=== PATIENT | female | born 1965 | race Caucasian/White ===

== ENCOUNTER 2020-06-17 08:21 | Inpatient (IN) | payer BC, SELFPAY ==
[2020-06-17] VITALS (11 sets, daily range): BP systolic 98–159; BP diastolic 60–111; PULSE 53–86; RESP 14–22; TEMP 36.5–36.8; O2SAT 94–98; BMI 29.2
--- NOTE | 2020-06-17 08:22 | XRR_ITS ---
PROCEDURE INFORMATION: Exam: XR Chest, 1 View Exam date and time: 06/17/2020 8:37 AM Age: 55 years old Clinical indication: Chest pain; Prior surgery; Surgery date: 6+ months; Surgery type: Stent; Patient HX: C/O pain radiating from chest to jaw and upper extremities TECHNIQUE: Imaging protocol: XR of the chest Views: 1 view. COMPARISON: CR Chest 1 [place] [id number] 10/28/2014 7:20 AM FINDINGS: Lungs: Unremarkable. No consolidation. Pleural space: Unremarkable. No pleural effusion. No pneumothorax. Heart/Mediastinum: Unremarkable. No cardiomegaly. Bones/joints: Unremarkable. XR/XR chest 1V portable [id number] IMPRESSION: No acute findings.
--- NOTE | 2020-06-17 08:23 | ECG_ITS ---
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 Measurements Intervals [place] Rate: 61 P: 64 MT: 144 QRS: 41 QRSD: 113 T: 93 QT: 400 QTc: 406 Interpretive Statements SINUS RHYTHM POSSIBLE LEFT ATRIAL ENLARGEMENT [-0.1mV P WAVE IN V1/V2] MODERATE INTRAVENTRICULAR CONDUCTION DELAY [110+ ms QRS DURATION] MODERATE ST DEPRESSION [0.05+ mV ST DEPRESSION] Compared to ECG 10/29/2014 04:25:36 Intraventricular conduction delay now present ST (T wave) deviation now present T-wave abnormality no longer present Electronically Signed On 06-17-2020 19:41:42 CDT by Emma Wright M.D. [email or web address].[employer]/store/NU/[id number] f
--- NOTE | 2020-06-17 08:38 | W.ED.CHESTPA ---
Documented by User: CAROLANN Banks 06/17/20 11:27 HPI - Chest Pain General: Chief Complaint: Chest Pain Stated Complaint: cp Time Seen by Provider: 06/17/20 08:26 Source: patient Mode of arrival: ambulatory Limitations: no limitations History of Present Illness: HPI narrative: Patient is a 55-year-old female who presents to ED today with a complaint of intermittent substernal chest pain over the past 3 weeks. Patient tells me she has not found any exacerbating or relieving factors to her discomfort. She has been treating with Aspirin, Tylenol, Pepcid without much relief. Patient states pain normally would subside on its own however this morning did not seem to do this which made her concerned enough to come to the emergency department. She has a history of a previous IN and cardiac stent performed approximately 5 years ago. Patient tells me she is not having any shortness of breath or difficulty breathing. She does complain of pain in her jaw and down both arms. 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 Grey but has not seen him in many many years. She has PMH significant for hyperlipidemia. She is an everyday smoker. MD complaint: chest pain Pertinent past history: coronary artery disease and prior IN Onset (ago): week(s) Timing of current episode: episodic Pain location: substernal Associated symptoms: Deny abdominal pain, dyspnea, fever(s), nausea, palpitations, syncope or vomiting Review of Systems Const: Denies: fever(s), chills, body aches, fatigue or malaise Eyes: Denies: change in vision or blurry vision Card: Reports: chest pain; Denies: palpitations, irregular heart rhythm, edema, swelling of feet/ankles, lightheadedness, syncope, pre-syncope, dyspnea on exertion, orthopnea or leg pain with exertion Resp: Denies: dyspnea, productive cough, non-productive cough, pain on inspiration, hemoptysis or chest congestion GI: Denies: abdominal pain, nausea, vomiting, heartburn or diarrhea : Denies: flank pain, difficulty voiding, dysuria or urinary urgency Musc: Denies: neck pain, back pain or joint pain Skin/Breast: Denies: rash Neuro: Denies: headache(s), numbness in extremities, weakness in extremities or sensory changes Physical Exam Const: COMMON NORMALS: no acute distress, patient oriented x3, no limitations and alert HENMT: COMMON NORMALS: normocephalic and atraumatic HEAD & SCALP: normocephalic and atraumatic Chest: COMMONS NORMALS: normal inspection of the chest and normal palpation of entire chest wall Resp: COMMON NORMALS: normal respiratory effort and clear to auscultation bilaterally AUSCULTATION: clear to auscultation bilaterally Cardio: COMMON NORMALS: regular rate and regular rhythm RATE: regular rate RHYTHM: regular rhythm GI: COMMON NORMALS: Normal to inspection, nondistended, normoactive bowel sounds present, Soft to palpation, non-tender, No hepatosplenomegaly present and no masses PALPATION: Yes Soft to palpation and Yes No hepatosplenomegaly present Extremity: GENERAL: Yes normal exam except as noted Neuro: COMMON NORMALS: patient oriented x3 SENSORIUM/ORIENTATION: Yes alert Skin: COMMON NORMALS: no rashes or lesions noted GENERAL SKIN EXAM: no rashes or lesions noted Course Vital Signs: Vital signs: Vital Signs Pulse Rate 55 L 06/17/20 11:32 Respiratory Rate 16 06/17/20 11:32 Blood Pressure 118/66 06/17/20 11:32 Pulse Oximetry 97 06/17/20 11:32 MDM - Chest Pain MDM Narrative: Medical decision making narrative: Patient here for worsening chest pains over the past few weeks. She has a HEART score of at least 6. Pending second troponin currently. Will speak to Dr. Walton for hospital admission. Lab Data: Labs: Lab Results 06/17/20 06/17/20 06/17/20 Range/Units 08:45 08:45 08:45 WBC 7.5 (4.0-10.0) 10^3/ uL RBC 4.76 (4.1-5.3) 10^6/u L Hgb 14.3 (11.5-15.3) g/dL Hct 44.2 (37.0-47.0) % MCV 92.9 (81-99) fL MCH 30.0 (28.0-34.0) pg MCHC 32.4 (30.0-36.0) g/dL RDW 13.0 (12.1-15.1) % Plt Count 194 (130-400) 10^3/c mm MPV 11.5 H (7.4-10.4) fL Neut % (Auto) 64.2 % Lymph % (Auto) 25.7 % [place] % (Auto) 7.4 % Eos % (Auto) 2.0 % Baso % (Auto) 0.4 % Neut # (Auto) 4.80 (1.8-7.7) 10^3/u L Lymph # (Auto) 1.9 (0.8-4.8) 10^3/u L [place] # (Auto) 0.6 (0.2-0.9) 10^3/u L Eos # (Auto) 0.2 (0.0-0.8) 10^3/u L Baso # (Auto) 0.0 (0.0-0.1) 10^3/u L Nucleated RBC % (a uto) 0 % Nucleated RBCs # 0.0 /100WBC Sodium 138 (136-145) mmol/L Potassium 4.3 (3.5-5.1) mmol/L Chloride 107 (98-107) mmol/L Carbon Dioxide 20 L (22-29) mmol/L Anion Gap 15.3 (5-19) BUN 10 (6-20) mg/dL Creatinine 0.8 (0.5-0.9) mg/dL GFR Calculation 74.5 L (90-130) mL/min Glucose 163 H (65-115) mg/dL Calculated Osmolal ity 286 (285-295) mOsm/k g Calcium 9.0 (8.5-10.5) mg/dL Total Bilirubin 0.2 (0.15-1.2) mg/dL AST 22 (0-32) U/L ALT 18 (0-33) U/L Alkaline Phosphata se 65 (35-105) IU/L Troponin T Baselin e 37 H (0-10) ng/L Troponin T 120 Min [place] (0-10) ng/L Delta Troponin T (0-10) ABS# Total Protein 6.6 (6.6-8.7) g/dL Albumin 3.5 (3.5-5.2) g/dL Globulin 3.1 (1.3-4.6) g/dL /06/28 Range/Units 10:50 WBC (4.0-10.0) 10^3/ uL RBC (4.1-5.3) 10^6/u L Hgb (11.5-15.3) g/dL Hct (37.0-47.0) % MCV (81-99) fL MCH (28.0-34.0) pg MCHC (30.0-36.0) g/dL RDW (12.1-15.1) % Plt Count (130-400) 10^3/c mm MPV (7.4-10.4) fL Neut % (Auto) % Lymph % (Auto) % [place] % (Auto) % Eos % (Auto) % Baso % (Auto) % Neut # (Auto) (1.8-7.7) 10^3/u L Lymph # (Auto) (0.8-4.8) 10^3/u L [place] # (Auto) (0.2-0.9) 10^3/u L Eos # (Auto) (0.0-0.8) 10^3/u L Baso # (Auto) (0.0-0.1) 10^3/u L Nucleated RBC % (a uto) % Nucleated RBCs # /100WBC Sodium (136-145) mmol/L Potassium (3.5-5.1) mmol/L Chloride (98-107) mmol/L Carbon Dioxide (22-29) mmol/L Anion Gap (5-19) BUN (6-20) mg/dL Creatinine (0.5-0.9) mg/dL GFR Calculation (90-130) mL/min Glucose (65-115) mg/dL Calculated Osmolal ity (285-295) mOsm/k g Calcium (8.5-10.5) mg/dL Total Bilirubin (0.15-1.2) mg/dL AST (0-32) U/L ALT (0-33) U/L Alkaline Phosphata se (35-105) IU/L Troponin T Baselin e (0-10) ng/L Troponin T 120 Min [place] 72.11 H (0-10) ng/L Delta Troponin T 35.11 H* (0-10) ABS# Total Protein (6.6-8.7) g/dL Albumin (3.5-5.2) g/dL Globulin (1.3-4.6) g/dL Imaging Data^: CXR: Radiologist's impression: [facility] [address] [place] [address] XRay Report Signed Patient: Elsy Benton Unit #: [id number] : 1965 Age/Sex: 55 / F ADM Date: 06/17/20 Loc: ER Room/Bed: Attending Dr: Ordering Provider/Ordering MD: Nicole Bowden Date of Service: 06/17/20 Procedure(s): XR chest 1V portable [id number] Accession Number(s): [id number] Report Number: [id number] PROCEDURE INFORMATION: Exam: XR Chest, 1 View Exam date and time: 06/17/2020 8:37 AM Age: 55 years old Clinical indication: Chest pain; Prior surgery; Surgery date: 6+ months; Surgery type: Stent; Patient HX: C/O pain radiating from chest to jaw and upper extremities TECHNIQUE: Imaging protocol: XR of the chest Views: 1 view. COMPARISON: CR Chest 1 [place] [id number] 10/28/2014 7:20 AM FINDINGS: Lungs: Unremarkable. No consolidation. Pleural space: Unremarkable. No pleural effusion. No pneumothorax. Heart/Mediastinum: Unremarkable. No cardiomegaly. Bones/joints: Unremarkable. XR/XR chest 1V portable [id number] IMPRESSION: No acute findings. Dictated By: Adam Flores MD Signed By: Adam Flores MD Signed Date/Time: 06/17/20922 DD/ 0 Discharge Plan Discharge Patient Disposition: Placed in Observation Admit Provider: Dulce Stanley Clinical Impression: Unstable angina pectoris Chest pain Qualifiers: Chest pain type: unspecified Qualified Code(s): R07.9 - Chest pain, unspecified Condition: Stable Referrals: Carley Serrano FNP [Primary Care Provider] - Sign Out Sign Out Data: Patient Sign Out occurred on 06/17/20 at 11:04. Patient's care was discussed, and care was transferred from to [facility]. Coding Level of Care Code ED Patient Care Provider for Chg Fwd Exam Comprehensive Documented by User: Hailey Walton 06/17/20 11:35 HPI - Chest Pain General: Chief Complaint: Chest Pain Stated Complaint: cp Time Seen by Provider: 06/17/20 08:26 Course Vital Signs: Vital signs: Vital Signs Pulse Rate 55 L 06/17/20 11:32 Respiratory Rate 16 06/17/20 11:32 Blood Pressure 118/66 06/17/20 11:32 Pulse Oximetry 97 06/17/20 11:32 MDM - Chest Pain MDM Narrative: Medical decision making narrative: 1100 -patient care inherited by me from CAROLANN Banks. Please see her note for history, physical exam and medical decision-making notes. Patient's heart score is high and she has new inverted T waves with downsloping in 1 and aVL on her second EKG. Upon my history and exam the patient is chest pain-free and is gotten so with just rest here. I endorsed the case to Dr. Stanley is agreeable to admission and agrees with a one-time dose of Lovenox. Further care will be performed by her on the floor. 1134 -the case was reviewed again with Dr. Stanley and Dr. Cuenca, they will admit and consult respectively. The patient is still chest pain-free but I went ahead and place an inch of Nitropaste, her third EKG is unchanged actually improved slightly from previous. We will add 300 mg of Plavix as well as the Lovenox and the patient has previously been given aspirin. Lab Data: Attestation: I reviewed the patient's lab results. Labs: Lab Results 06/17/20 06/17/20 06/17/20 Range/Units 08:45 08:45 08:45 WBC 7.5 (4.0-10.0) 10^3/ uL RBC 4.76 (4.1-5.3) 10^6/u L Hgb 14.3 (11.5-15.3) g/dL Hct 44.2 (37.0-47.0) % MCV 92.9 (81-99) fL MCH 30.0 (28.0-34.0) pg MCHC 32.4 (30.0-36.0) g/dL RDW 13.0 (12.1-15.1) % Plt Count 194 (130-400) 10^3/c mm MPV 11.5 H (7.4-10.4) fL Neut % (Auto) 64.2 % Lymph % (Auto) 25.7 % [place] % (Auto) 7.4 % Eos % (Auto) 2.0 % Baso % (Auto) 0.4 % Neut # (Auto) 4.80 (1.8-7.7) 10^3/u L Lymph # (Auto) 1.9 (0.8-4.8) 10^3/u L [place] # (Auto) 0.6 (0.2-0.9) 10^3/u L Eos # (Auto) 0.2 (0.0-0.8) 10^3/u L Baso # (Auto) 0.0 (0.0-0.1) 10^3/u L Nucleated RBC % (a uto) 0 % Nucleated RBCs # 0.0 /100WBC Sodium 138 (136-145) mmol/L Potassium 4.3 (3.5-5.1) mmol/L Chloride 107 (98-107) mmol/L Carbon Dioxide 20 L (22-29) mmol/L Anion Gap 15.3 (5-19) BUN 10 (6-20) mg/dL Creatinine 0.8 (0.5-0.9) mg/dL GFR Calculation 74.5 L (90-130) mL/min Glucose 163 H (65-115) mg/dL Calculated Osmolal ity 286 (285-295) mOsm/k g Calcium 9.0 (8.5-10.5) mg/dL Total Bilirubin 0.2 (0.15-1.2) mg/dL AST 22 (0-32) U/L ALT 18 (0-33) U/L Alkaline Phosphata se 65 (35-105) IU/L Troponin T Baselin e 37 H (0-10) ng/L Troponin T 120 Min [place] (0-10) ng/L Delta Troponin T (0-10) ABS# Total Protein 6.6 (6.6-8.7) g/dL Albumin 3.5 (3.5-5.2) g/dL Globulin 3.1 (1.3-4.6) g/dL 06/17/20 Range/Units 10:50 WBC (4.0-10.0) 10^3/ uL RBC (4.1-5.3) 10^6/u L Hgb (11.5-15.3) g/dL Hct (37.0-47.0) % MCV (81-99) fL MCH (28.0-34.0) pg MCHC (30.0-36.0) g/dL RDW (12.1-15.1) % Plt Count (130-400) 10^3/c mm MPV (7.4-10.4) fL Neut % (Auto) % Lymph % (Auto) % [place] % (Auto) % Eos % (Auto) % Baso % (Auto) % Neut # (Auto) (1.8-7.7) 10^3/u L Lymph # (Auto) (0.8-4.8) 10^3/u L [place] # (Auto) (0.2-0.9) 10^3/u L Eos # (Auto) (0.0-0.8) 10^3/u L Baso # (Auto) (0.0-0.1) 10^3/u L Nucleated RBC % (a uto) % Nucleated RBCs # /100WBC Sodium (136-145) mmol/L Potassium (3.5-5.1) mmol/L Chloride (98-107) mmol/L Carbon Dioxide (22-29) mmol/L Anion Gap (5-19) BUN (6-20) mg/dL Creatinine (0.5-0.9) mg/dL GFR Calculation (90-130) mL/min Glucose (65-115) mg/dL Calculated Osmolal ity (285-295) mOsm/k g Calcium (8.5-10.5) mg/dL Total Bilirubin (0.15-1.2) mg/dL AST (0-32) U/L ALT (0-33) U/L Alkaline Phosphata se (35-105) IU/L Troponin T Baselin e (0-10) ng/L Troponin T 120 Min [place] 72.11 H (0-10) ng/L Delta Troponin T 35.11 H* (0-10) ABS# Total Protein (6.6-8.7) g/dL Albumin (3.5-5.2) g/dL Globulin (1.3-4.6) g/dL Imaging Data^: CXR: Attestation: I personally reviewed and interpreted this imaging study as follows: My impression: No acute cardiopulmonary findings. EKG Data^: EKG 1: Attestation: I personally reviewed and interpreted this EKG as follows: EKG interpretation date: 06/17/20 EKG interpretation time: 08:40 Interpretation: Normal sinus rhythm at 61 beats a minute, normal axis, nonspecific ST and T wave changes, new from previous. EKG 2: Attestation: I personally reviewed and interpreted this EKG as follows: EKG interpretation date: 06/17/20 EKG interpretation time: 10:14 Interpretation: Normal sinus rhythm at 54 beats a minute, T wave inversions and downsloping ST segments in 1 and aVL, otherwise no acute findings. EKG 3: Attestation: I personally reviewed and interpreted this EKG as follows: EKG interpretation date: 06/17/20 EKG interpretation time: 11:29 Interpretation: Normal sinus rhythm at 54 beats a minute, T waves inverted in aVL, otherwise nonspecific ST-T wave changes. Discharge Plan Discharge Patient Disposition: Placed in Observation Admit Provider: Dulce Stanley Clinical Impression: Unstable angina pectoris Chest pain Qualifiers: Chest pain type: unspecified Qualified Code(s): R07.9 - Chest pain, unspecified Condition: Stable Referrals: Carley Serrano FNP [Primary Care Provider] - Sign Out Sign Out Data: Patient Sign Out occurred on 06/17/20 at 11:04. Patient's care was discussed, and care was transferred from to [facility]. Coding Level of Care Code ED Patient Care Provider for Chg Fwd Exam Comprehensive
[2020-06-17 08:56] LABS: Basophils % 0.4 %; Eosinophils # 0.2 10^3/uL (0.0-0.8); Hematocrit 44.2 % (37.0-47.0); Hemoglobin 14.3 g/dL (11.5-15.3); Lymphocytes # 1.9 10^3/uL (0.8-4.8); Lymphocytes % 25.7 %; Mean Corpuscular HGB Conc 32.4 g/dL (30.0-36.0); Mean Corpuscular Volume 92.9 fL (81-99); Mean Platelet Volume 11.5 fL (7.4-10.4); Monocytes # 0.6 10^3/uL (0.2-0.9); Monocytes % 7.4 %; Neutrophils % 64.2 %; Nucleated Red Blood Cells % 0 %; Platelet Count 194 10^3/cmm (130-400); Red Blood Count 4.76 10^6/uL (4.1-5.3); White Blood Count 7.5 10^3/uL (4.0-10.0)
[2020-06-17 09:43] LABS: Alanine Aminotransferase 18 U/L (0-33); Albumin Level 3.5 g/dL (3.5-5.2); Alkaline Phosphatase 65 IU/L (35-105); Anion Gap 15.3 (5-19); Aspartate Amino Transferase 22 U/L (0-32); Blood Urea Nitrogen 10 mg/dL (6-20); Carbon Dioxide 20 mmol/L (22-29); Chloride 107 mmol/L (98-107); Globulin 3.1 g/dL (1.3-4.6); Glomerular Filtration Rate 74.5 mL/min (90-130); Glucose 163 mg/dL (65-115); Osmolality Calculated 286 mOsm/kg (285-295); Potassium 4.3 mmol/L (3.5-5.1); Sodium 138 mmol/L (136-145); Total Bilirubin 0.2 mg/dL (0.15-1.2); Total Protein 6.6 g/dL (6.6-8.7)
[2020-06-17 09:45] LABS: Troponin(5th) Baseline 37 ng/L (0-10)
--- NOTE | 2020-06-17 10:23 | ECG_ITS ---
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 Measurements Intervals [place] Rate: 54 P: 43 [place]: 150 QRS: 46 QRSD: 96 T: 147 QT: 455 QTc: 434 Interpretive Statements SINUS BRADYCARDIA WITH OCCASIONAL SUPRAVENTRICULAR PREMATURE COMPLEXES NONSPECIFIC ST & T-WAVE ABNORMALITY Compared to ECG 06/17/2020 08:40:49 T-wave abnormality now present Sinus rhythm no longer present Intraventricular conduction delay no longer present ST (T wave) deviation no longer present Electronically Signed On 06-17-2020 20:05:01 CDT by Emma Wright M.D. [email or web address] LtdWeditregency [facility].[employer]/store/NU/[id number] f
[2020-06-17] MEDS: enoxaparin 80 mg/0.8 mL Syringe 77 MG SUBCUT (11:14)
[2020-06-17 11:16] LABS: Troponin 5 2HR 72.11 ng/L (0-10)
[2020-06-17 11:19] LABS: Troponin 5 2HR Delta 35.11 ABS# (0-10)
--- NOTE | 2020-06-17 11:22 | ECG_ITS ---
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 Measurements Intervals [place] Rate: 54 P: 60 [place]: 152 QRS: 37 QRSD: 93 T: 112 QT: 453 QTc: 430 Interpretive Statements SINUS BRADYCARDIA MODERATE ST DEPRESSION [0.05+ mV ST DEPRESSION] ABNORMAL QRS-T ANGLE [QRS-T AXIS DIFFERENCE > 60] Compared to ECG 06/17/2020 10:14:53 ST (T wave) deviation now present T-wave abnormality no longer present Electronically Signed On 06-17-2020 19:42:13 CDT by Emma Wright M.D. [email or web address] [email or web address].[employer]/store/[id number]
[2020-06-17] MEDS: nitroglycerin 1 gm/inch oint Pkt 1 INCH TOPICAL (11:43)
[2020-06-17] MEDS: clopidogrel 300 mg Tablet PO (11:43)
--- NOTE | 2020-06-17 11:46 | PC.NURSE ---
Nitro-bid 1inch applied to left chest at this time.
[2020-06-17 13:15] LABS: Thyroid Stimulating Hormone 2.14 uIU/mL (0.27-4.20)
--- NOTE | 2020-06-17 13:41 | USCV_ITS ---
Benton Elsy Age: 55 Gender: F : 1965 Exam Date: 06/17/2020 14:59 Ordering Phys: Dulce Stanley DO Technologist: Wade Summers Exam Location: [facility] Indication: CHEST PAIN BP: 125 / 75 HR: 58 Rhythm: Sinus Technical Quality: Fair MEASUREMENTS (Male / Female) Normal Values 2D ECHO LV Diastolic Diameter PLAX 4.8 cm 4.2 - 5.9 / 3.9 - 5.3 cm LV Systolic Diameter PLAX 2.8 cm IVS Diastolic Thickness 1.1 cm 0.6 - 1.0 / 0.6 - 0.9 cm IVS Systolic Thickness 1.2 cm LVPW Diastolic Thickness 1.1 cm 0.6 - 1.0 / 0.6 - 0.9 cm LVPW Systolic Thickness 1.2 cm LVOT Diameter 2.0 cm LV Ejection Fraction 2D Teich 72.4 % LV Ejection Fraction MOD 2C 82.1 % LV Ejection Fraction 2C AL 81.1 % LA Diameter 3.5 cm LA Width 3.1 cm LA Height 4.2 cm RA Width 2.9 cm RA Height 3.3 cm Aorta at Sinotubular Diameter 0.9 cm M-MODE LV Diastolic Diameter MM 5.5 cm 4.2 - 5.9 / 3.9 - 5.3 cm LV Systolic Diameter MM 3.6 cm LV Ejection Fraction MM Teich 63.5 % IVS Diastolic Thickness MM 0.8 cm 0.6 - 1.0 / 0.6 - 0.9 cm IVS Systolic Thickness MM 1.7 cm LVPW Diastolic Thickness MM 1.1 cm 0.6 - 1.0 / 0.6 - 0.9 cm LVPW Systolic Thickness MM 1.5 cm RV Diastolic Diameter MM 1.8 cm Aortic Annulus Diameter 3.5 cm LA Ao Ratio MM 1.0 MV E Point Septal Separation 1.4 cm DOPPLER AV Peak Velocity 119.0 cm/s LVOT Peak Velocity 107.0 cm/s AV Area Cont Eq vti 2.5 cm squared AV Area Cont Eq pk 3.0 cm squared MV Area PHT 5.0 cm squared Mitral E to A Ratio 0.9 MV E' Velocity 9.0 cm/s Mitral E to MV E' Ratio 9.2 Mitral E to LV E' Lateral Ratio 9.3 Mitral E to LV E' Septal Ratio 9.2 TR Peak Velocity 220.0 cm/s TR Peak Gradient 19.4 mmHg TV Peak E Velocity 169.0 cm/s Right Atrial Pressure 3.0 mmHg Pulmonary Artery Systolic Pressu 22.4 mmHg PV Peak Velocity 80.0 cm/s FINDINGS Left Ventricle Normal left ventricular cavity size. Normal left ventricular systolic function. No regional wall motion abnormalities. Left ventricular ejection fraction is estimated at 63 %. Grade I/IV diastolic dysfunction (abnormal relaxation filling pattern), normal to mildly elevated filling pressures. Right Ventricle The right ventricle is normal in size and function. Right Atrium The right atrium is normal in size. Left Atrium The left atrium is normal in size. Mitral Valve Mildly thickened mitral valve. No mitral valve stenosis. No mitral valve regurgitation. Aortic Valve Moderate aortic valve calcification. No aortic valve stenosis. Trace aortic valve regurgitation. Tricuspid Valve Structurally normal tricuspid valve without significant stenosis or regurgitation. Pulmonary artery systolic pressure is normal. Pulmonic Valve Structurally normal pulmonic valve without significant stenosis. There is no pulmonic regurgitation. Pericardium Normal pericardium without effusion. Aorta Normal ascending aorta dimension. CONCLUSIONS 1-Normal left ventricular cavity size. Normal left ventricular systolic function. No regional wall motion abnormalities. Left ventricular ejection fraction is estimated at 63 %. Grade I/IV diastolic dysfunction (abnormal relaxation filling pattern), normal to mildly elevated filling pressures. 2-There is no pericardial effusion. 3-No significant valve abnormalities. 4-Pulmonary artery systolic pressure is within normal limits. 5-There is no pericardial effusion. 6-Right atrial pressure is around 5 mm of mercury. 7-There are no prior echocardiogram studies to compare. Adrian Martinez MD (Electronically Signed) Final Date: 17 June 2020 21:48 S
--- NOTE | 2020-06-17 13:45 | P.HP_ITS ---
Providers/Chief Complaint Admitting Physician: Dulce Stanley DO Primary Care Provider: OTILIO Polanco Chief Complaint: cp History of Present Illness Elsy Benton is a 55 year old female Review of Systems Const: Denies: fever(s) or chills Eyes: Denies: change in vision ENMT: Denies: nasal congestion Card: Reports: chest pain; Denies: palpitations or edema Resp: Reports: other (occasional dry cough); Denies: dyspnea, productive cough or hemoptysis GI: Denies: abdominal pain, nausea, vomiting, diarrhea, constipation, hematochezia or melena : Denies: dysuria or hematuria Musc: Denies: extremity pain or muscle cramps Skin/Breast: Denies: rash or new lesions Neuro: Denies: headache(s) or dizziness Psych: Denies: anxiety or depression Endo: Denies: polyuria or hot flashes Destin/Lymph: Denies: easy bruising or easy bleeding Medications/Allergies Home Medications Medication Instructions Recorded Confirmed Last Taken Type Tums See Rx Instructions .ROUTE .COMPLEX 06/17/20 06/17/20 06/17/20 08:00 History 4 tabs acetaminophen [Tylenol Extra 1,000 mg PO PRN 06/17/20 06/17/20 06/17/20 History Strength] 1000 mg aspirin 325 mg PO DAILY 06/17/20 06/17/20 06/17/20 History 487 mg ibuprofen 400 mg PO PRN 06/17/20 06/17/20 Unknown History omeprazole 20 - 40 mg PO PRN 06/17/20 06/17/20 06/17/20 08:00 History potassium gluconate 595 mg PO BID PRN 06/17/20 06/17/20 Unknown History vitamin B complex 1 tab PO DAILY PRN 06/17/20 06/17/20 Unknown History Allergies Allergy/AdvReac Type Severity Reaction Status Date / Time Penicillins Allergy Unknown Verified 06/17/20 08:57 PFSH Acute PFSH: Medical History (Updated 06/17/20 @ 13:57 by Dulce Stanley DO) Coronary artery disease Tobacco abuse Surgical History (Updated 06/17/20 @ 14:32 by Dulce Stanley DO) History of tubal ligation Hx of cardiac cath 10/2014, Dr. Grey Stent to circumflex Family History (Updated 06/17/20 @ 14:33 by Dulce Stanley DO) Mother Dementia CAD (coronary artery disease) Father Stroke Social History (Updated 06/17/20 @ 14:33 by Dulce Stanley DO) Smoking and tobacco status: current every day smoker cigarettes Alcohol intake: never Substance/Drug Use: never Vitals/I&O/Wt Last Vital Signs Temp 97.7 F 06/17/20 12:43 Pulse 53 L 06/17/20 12:43 Resp 16 06/17/20 12:43 BP 125/75 06/17/20 12:43 Pulse Ox 97 06/17/20 12:43 Weight last 48 hrs Weight 77.111 kg Physical Exam Const: COMMON NORMALS: patient oriented x3 and alert GENERAL APPEARANCE: cooperative ORIENTATION/CONSCIOUSNESS: Yes awake, Yes oriented to person, Yes oriented to place and Yes oriented to time HENMT: COMMON NORMALS: normocephalic and atraumatic HEAD & SCALP: normocephalic and atraumatic Eye: COMMON NORMALS: Equal, round and reactive pupils present PUPIL: Yes Equal, round and reactive pupils present Neck/C-Spine: COMMON NORMALS: supple GENERAL: Yes normal visual inspection Resp: COMMON NORMALS: normal respiratory effort and clear to auscultation bilaterally EFFORT & INSPECTION: Yes able to speak in complete sentences AUSCULTATION: clear to auscultation bilaterally, no rhonchi and no wheezes Cardio: COMMON NORMALS: regular rate, regular rhythm and No murmurs present (Cardio) RATE: regular rate RHYTHM: regular rhythm GI: COMMON NORMALS: Soft to palpation and non-tender INSPECTION: No abdominal distension AUSCULTATION: Yes normoactive bowel sounds PALPATION: Yes Soft to palpation : COMMON NORMALS: Yes no CVA tenderness BLADDER/KIDNEY EXAM: Yes no CVA tenderness Back/Pelvis: COMMON NORMALS: no CVA tenderness Extremity: COMMON NORMALS: no clubbing, cyanosis or edema and no calf tenderness Neuro: COMMON NORMALS: patient oriented x3, CN's II-XII intact bilaterally, moves all extremities and no focal motor deficits SENSORIUM/ORIENTATION: Yes alert, Yes oriented to person, Yes oriented to place and Yes oriented to time SPEECH: speech normal Psych: COMMON NORMALS: mental status grossly normal and cooperative Skin: COMMON NORMALS: no rashes or lesions noted GENERAL SKIN EXAM: no rashes or lesions noted Data : 06/17/20 08:45 06/17/20 08:45 CXR: I personally reviewed and interpreted this imaging study as follows: My impression: Chest x-ray reviewed with no acute cardiopulmonary process EKG 1: I personally reviewed and interpreted this EKG as follows: 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 Martinez consulted, appreciate recommendations and assistance in patient's care. Loading dose of Plavix given in the ED We will start on atorvastatin Echocardiogram ordered for evaluation of LV function Ordered for metoprolol 12.5 mg twice daily, however hold if heart rate less than 60 bpm. Patient has been fluctuating in the low to mid 60s. With some dips into the 50s. Status: Acute (2) Coronary artery disease: History of coronary artery disease with stenting in October [address] Grey to circumflex Patient has not been on any medications regularly for several years, does not have a primary care provider. Discussed with patient the importance of medications including cardiac medications Discussed the importance of tobacco cessation Status: Acute (3) Tobacco abuse: Strongly encouraged tobacco cessation Status: Acute Additional A&P Information Hyperglycemia without history of diabetes: We will check hemoglobin A1c DVT prophylaxis: On treatment dose Lovenox due to non-ST elevation [place] Diet: Cardiac diet, n.p.o. at midnight CODE STATUS: Limited resuscitation, patient is okay with CPR, however reports she does not want to be intubated at any time or for any amount of time. 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
[2020-06-17] MEDS: sodium chloride 0.9% 1,000 ML 30 ML IV (14:18)
[2020-06-17] MEDS: isosorbide mononitrate ER 30 mg Tablet PO (14:18)
--- NOTE | 2020-06-17 14:23 | ECG_ITS ---
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 Measurements Intervals [place] Rate: 59 P: 63 FL: 158 QRS: 51 QRSD: 95 T: 149 QT: 448 QTc: 447 Interpretive Statements SINUS BRADYCARDIA NONSPECIFIC ST & T-WAVE ABNORMALITY Compared to ECG 06/17/2020 11:29:59 T-wave abnormality now present ST (T wave) deviation no longer present Electronically Signed On 06-17-2020 20:07:29 CDT by Emma Wright M.D. [id number]
[2020-06-17 15:05] LABS: Estmated Average Glucose 128; Hemoglobin A1C 6.1 % (4.0-6.0)
[2020-06-17 15:31] LABS: Troponin 5 6HR 176.6 ng/L (0-10)
[2020-06-17 15:32] LABS: Troponin 5 6HR Delta 139.6 ng/L (0-12)
[2020-06-17 15:43] LABS: INR 0.83 (0.8-1.2)
[2020-06-17] MEDS: metoprolol tartrate 25 mg Tablet 12.5 MG PO (18:30)
--- NOTE | 2020-06-17 19:56 | PC.NURSE ---
Patient does not have any complaints at this time. Will monitor.
[2020-06-17] MEDS: atorvastatin 40 mg Tablet 80 MG PO (20:17)
--- NOTE | 2020-06-17 20:37 | PM.CONSULT ---
Providers/Reason For Consult Consulting Physican/Specialty*: Adrian Martinez MD Reason for Consult*: Non-ST elevation DE Attending Physician: Dulce Stanley DO Primary Care Provider: OTILIO Polanco History of Present Illness History of Present Illness Elsy Benton is a 55 year old female medical history significant for multivessel nonobstructive coronary artery disease, history of non-ST elevation DE for which distal circumflex was treated with drug-eluting stent in 2004, unfortunately patient continues to smoke and did not follow-up with cardiology regularly. For the past few days she has been noticing worsening of chest pain off and on basis upon exertion and then at rest she did not pay much attention until today when pain became more consistent and worsened in intensity. Twelve-lead EKG was not suggestive of any significant ischemia however cardiac markers bumped up with delta troponin suggestive of non-ST elevation DE. She was given Lovenox and loaded with 300 mg of Plavix. When I saw the patient she was not in chest pain and appeared to be stable. Review of Systems Const: Denies: fever(s), chills, body aches, fatigue or malaise Eyes: Denies: change in vision or blurry vision ENMT: Denies: nasal congestion Card: Reports: chest pain; Denies: palpitations, irregular heart rhythm, edema, swelling of feet/ankles, lightheadedness, syncope, pre-syncope, dyspnea on exertion, orthopnea or leg pain with exertion Resp: Reports: other (occasional dry cough); Denies: dyspnea, productive cough, non-productive cough, pain on inspiration, hemoptysis or chest congestion GI: Denies: abdominal pain, nausea, vomiting, heartburn, diarrhea, constipation, hematochezia or melena : Denies: flank pain, difficulty voiding, dysuria, urinary urgency or hematuria Musc: Denies: neck pain, back pain, extremity pain, joint pain or muscle cramps Skin/Breast: Denies: rash or new lesions Neuro: Denies: headache(s), numbness in extremities, weakness in extremities, sensory changes or dizziness Psych: Denies: anxiety or depression Endo: Denies: polyuria or hot flashes Destin/Lymph: Denies: easy bruising or easy bleeding Meds/Allergies Home Medications and Allergies Home Medications Medication Instructions Recorded Confirmed Last Taken Type Tums See Rx Instructions .ROUTE .COMPLEX 06/17/20 06/17/20 06/17/20 08:00 History 4 tabs acetaminophen [Tylenol Extra 1,000 mg PO PRN 06/17/20 06/17/20 06/17/20 History Strength] 1000 mg aspirin 325 mg PO DAILY 06/17/20 06/17/20 06/17/20 History 487 mg ibuprofen 400 mg PO PRN 06/17/20 06/17/20 Unknown History omeprazole 20 - 40 mg PO PRN 06/17/20 06/17/20 06/17/20 08:00 History potassium gluconate 595 mg PO BID PRN 06/17/20 06/17/20 Unknown History vitamin B complex 1 tab PO DAILY PRN 06/17/20 06/17/20 Unknown History Allergies Allergy/AdvReac Type Severity Reaction Status Date / Time Penicillins Allergy Unknown Verified 06/17/20 08:57 Current Medications Current Medications Generic Name Dose Route Start Last Admin Trade Name Freq PRN Reason Stop Dose Admin Atorvastatin Calcium 80 mg 06/17/20 21:00 06/17/20 20:17 Lipitor PO 80 mg BEDTIME PHAM Administration Sodium Chloride 1,000 mls @ 30 mls/hr 06/17/20 12:43 06/17/20 14:18 Sodium Chloride 0.9% IV 30 mls/hr .Q24H PHAM Administration Isosorbide Mononitrate 30 mg 06/17/20 14:00 06/17/20 14:18 Imdur PO 30 mg DAILY PHAM Administration Metoprolol Tartrate 12.5 mg 06/17/20 18:00 06/17/20 18:30 Lopressor PO 12.5 mg BID PHAM Administration PFSH Acute PFSH: Medical History (Updated 06/17/20 @ 13:57 by Dulce Stanley DO) Coronary artery disease Tobacco abuse Surgical History (Updated 06/17/20 @ 14:32 by Dulce Stanley DO) History of tubal ligation Hx of cardiac cath 10/2014, Dr. Grey Stent to circumflex Family History (Updated 06/17/20 @ 14:33 by Dulce Stanley DO) Mother Dementia CAD (coronary artery disease) Father Stroke Social History (Updated 06/17/20 @ 14:33 by Dulce Stanley, DO) Smoking and tobacco status: current every day smoker cigarettes Alcohol intake: never Substance/Drug Use: never Vitals/I&O/Wt Last Vital Signs Temp 98 F 06/17/20 19:56 Pulse 69 06/17/20 19:56 Resp 22 H 06/17/20 19:56 BP 110/64 06/17/20 19:56 Pulse Ox 96 06/17/20 19:56 06/17/20 06/17/20 06/17/20 06:59 14:59 22:59 Intake Total 240 / 240 120 / 360 Balance 240 / 240 120 / 360 Weight last 48 hrs Weight 170 lb Data Labs: Other Labs: SINUS BRADYCARDIA lateral 1 aVL T wave abnormality Compared to ECG 06/17/2020 11:29:59 T-wave abnormality now present A&P Assessment and plan (1) NSTEMI (non-ST elevated myocardial infarction): Patient has prior history of nonobstructive coronary disease unfortunately she continues to smoke she had prior stent of circumflex. Worsening of chest pain with positive cardiac markers suggestive of acute coronary syndrome. She has been given full dose Lovenox and loaded with 3 mg of Plavix. I will add beta-alec isosorbide mononitrate aspirin statin to the regimen. We will plan to proceed with coronary angiogram in the morning. Patient has been explained all risk benefit and alternative for the procedure. 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
[2020-06-17] MEDS: enoxaparin 80 mg/0.8 mL Syringe SUBCUT (23:05)
--- NOTE | 2020-06-17 23:53 | PC.NURSE ---
Patient is currently resting with eyes closed. Will monitor.
[2020-06-18] VITALS (38 sets, daily range): BP systolic 107–140; BP diastolic 57–85; PULSE 42–67; RESP 14–24; TEMP 36.5–36.8; O2SAT 92–97
[2020-06-18 04:53] LABS: Basophils % 0.2 %; Eosinophils # 0.2 10^3/uL (0.0-0.8); Eosinophils % 2.6 %; Hematocrit 39.1 % (37.0-47.0); Hemoglobin 12.4 g/dL (11.5-15.3); Lymphocytes # 2.5 10^3/uL (0.8-4.8); Lymphocytes % 30.1 %; Mean Corpuscular HGB Conc 31.7 g/dL (30.0-36.0); Mean Corpuscular Hemoglobin 30.2 pg (28.0-34.0); Mean Corpuscular Volume 95.4 fL (81-99); Mean Platelet Volume 12.5 fL (7.4-10.4); Monocytes # 0.7 10^3/uL (0.2-0.9); Neutrophils # 4.91 10^3/uL (1.8-7.7); Neutrophils % 58.9 %; Nucleated Red Blood Cells % 0 %; Platelet Count 156 10^3/cmm (130-400); Red Cell Distribution Width 13.3 % (12.1-15.1); White Blood Count 8.4 10^3/uL (4.0-10.0)
[2020-06-18 05:17] LABS: Chol HDL Ratio 6.31 mg/dL (0.0-4.40); Cholesterol 303 mg/dL (0-200); HDL Cholesterol 48 mg/dL (60-100); LDL Cholesterol Calculated 221 mg/dL (50-129); Triglycerides 170 mg/dL (0-150)
[2020-06-18 05:20] LABS: Anion Gap 11.2 (5-19); Blood Urea Nitrogen 10 mg/dL (6-20); Calcium 8.7 mg/dL (8.5-10.5); Carbon Dioxide 24 mmol/L (22-29); Chloride 107 mmol/L (98-107); Glomerular Filtration Rate 74.5 mL/min (90-130); Glucose 110 mg/dL (65-115); Osmolality Calculated 283 mOsm/kg (285-295); Potassium 4.2 mmol/L (3.5-5.1); Sodium 138 mmol/L (136-145)
--- NOTE | 2020-06-18 07:41 | PC.NURSE ---
PER DR. ROBERTSON, PLEASE HOLD MORNING MEDICATIONS UNTIL AFTER HER HEART CATH AT 1000 EXCEPT HER PRE CATH BENADRYL.
[2020-06-18] MEDS: diphenhydrAMINE 25 mg Capsule PO (08:14)
--- NOTE | 2020-06-18 09:27 | PM.PN ---
Subjective Subjective: Interval history: Patient awake in bed at time of exam this morning. She denied any chest pain or shortness of breath, noted slight headache. No other concerns at this time. Discussed with her plan for angiogram today, she verbalized understanding and agreed with plan. Vitals/I&O/Wt Last Vital Signs Temp 97.8 F 06/18/20 07:23 Pulse 60 06/18/20 07:23 Resp 18 06/18/20 07:23 BP 118/65 06/18/20 07:23 Pulse Ox 94 06/18/20 07:23 06/17/20 06/18/20 06/18/20 22:59 06:59 14:59 Intake Total 120 / 360 Output Total Balance 120 / 360 - Weight last 48 hrs Weight 77.882 kg Weight 77.519 kg Weight 77.111 kg Physical Exam Const: COMMON NORMALS: patient oriented x3 and alert GENERAL APPEARANCE: cooperative ORIENTATION/CONSCIOUSNESS: Yes awake, Yes oriented to person, Yes oriented to place and Yes oriented to time HENMT: COMMON NORMALS: normocephalic and atraumatic HEAD & SCALP: normocephalic and atraumatic Eye: COMMON NORMALS: Equal, round and reactive pupils present PUPIL: Yes Equal, round and reactive pupils present Neck/C-Spine: COMMON NORMALS: supple GENERAL: Yes normal visual inspection Resp: COMMON NORMALS: normal respiratory effort and clear to auscultation bilaterally EFFORT & INSPECTION: Yes able to speak in complete sentences AUSCULTATION: clear to auscultation bilaterally, no rhonchi and no wheezes Cardio: COMMON NORMALS: regular rate, regular rhythm and No murmurs present (Cardio) RATE: regular rate RHYTHM: regular rhythm Extremity: COMMON NORMALS: no clubbing, cyanosis or edema Neuro: COMMON NORMALS: patient oriented x3, CN's II-XII intact bilaterally, moves all extremities and no focal motor deficits SENSORIUM/ORIENTATION: Yes alert, Yes oriented to person, Yes oriented to place and Yes oriented to time SPEECH: speech normal Psych: COMMON NORMALS: mental status grossly normal and cooperative Skin: COMMON NORMALS: no rashes or lesions noted GENERAL SKIN EXAM: no rashes or lesions noted Data : 06/18/20 04:06 06/18/20 04:06 A&P Assessment and plan (1) NSTEMI (non-ST elevated myocardial infarction): Plan for cardiac cath today Cardiology, Dr. Martinez consulted, appreciate recommendations and assistance in patient's care Continue on aspirin, Plavix, atorvastatin, low-dose metoprolol but will continue to monitor heart rate and if heart rate remains less than 60 will hold. Also started on Imdur Status: Acute (2) Coronary artery disease: History of coronary artery disease with stenting in October [address] Grey to circumflex Patient has not been on any medications regularly for several years, does not have a primary care provider. Discussed with patient the importance of medications including cardiac medications Discussed the importance of tobacco cessation Status: Acute (3) Tobacco abuse: Strongly encouraged tobacco cessation Status: Acute Additional A&P Information Hyperglycemia without history of diabetes: A1c of 6.1 DVT prophylaxis: On treatment dose Lovenox due to non-ST elevation [place] Diet: NPO CODE STATUS: Limited resuscitation, patient is okay with CPR, however reports she does not want to be intubated at any time or for any amount of time. 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
--- NOTE | 2020-06-18 09:46 | W.PM.OPSUD ---
Surgery/Procedure H&P Update DATE OF PROCEDURE: June 18, 2020 DATE H&P PERFORMED: 06/18/20 H&P UPDATE INFORMATION: I have examined patient prior to procedure and No changes to prior documentation PREOP DIAGNOSIS: Non-ST elevation [place] PLANNED PROCEDURE: Operation Date: 06/18/20 10:00 Proposed Procedures p Cardiac Catheterization(Left) - Adrian Martinez MD PATIENT REASSESSED PRIOR TO SEDATION, WITH NO CHANGE NOTED: Yes PHYSICAL EXAM: alert, oriented x 3, clear to auscultation bilaterally and regular rate & rhythm AIRWAY EVAL/ANESTHESIA PLAN: ASA II, Risks, benefits & alternatives of sedation and/or procedure discussed and Patient agrees to continue as planned
--- NOTE | 2020-06-18 10:00 | XACV_ITS ---
Exam Room: 103 Ht: 163 cm Wt: 77 kg BSA: 1.89 m2 Gender: Female : 1965 Exam Priority: Routine Procedure(s): Procedure Description: Diagnostic procedure Procedure Description: Left Heart Catheterization Diagnostic Cath Status: Elective Diagnostic Findings LM has 0% stenosis. mLAD: Moderate 60% stenosis, BREANN: 3 flow. mCIRC: Severe 90% stenosis, BREANN: 2 flow. 1st OM: Moderate 50% stenosis, BREANN: 3 flow. pRCA: Moderate 50% stenosis, BREANN: 3 flow. Mid Right Coronary Artery: Severe 80% stenosis, BREANN: 3 flow. dRCA: Moderate 50% stenosis, BREANN: 3 flow. Coronary angiography shows right dominance. PCI Status: Urgent PCI Indication: NSTE - ACS Interventional Findings mCIRC: 90% stenosis treated with MDT R TANNA 3.0X8 ANN. 0% residual stenosis, BREANN: 3 flow. Mid Right Coronary Artery: 80% stenosis treated with MDT R TANNA 3.5X12 ANN. 0% residual stenosis, BREANN: 3 flow. Conclusions There is severe coronary artery disease with three vessel disease. mCIRC was treated with Drug Eluting Stent. Mid Right Coronary Artery was treated with Drug Eluting Stent. Recommendations 1-Return to inpatient for close monitoring and routine cath care2-Risk factor modification for secondary prevention3-Statin and aspirin 81 mg life--long, if tolerated4-Patient was pre-loaded with 300 mg of Plavix, continue Plavix 75mg p.o. daily for at least one year. We will assess at the end of one year again to continue if further or not5-Continue optimal medical management6-Follow up with Dr. Martinez in four weeks and your primary care in 10 days. Diagnostic RX Recommendation: PCI w/o planned CABG Pressures Phase:Rest AO : 105 mmHg / 63 mmHg ( 80 mmHg ) @ 5:19:00 AM 116 mmHg / 73 mmHg ( 91 mmHg ) @ 5:21:00 AM 104 mmHg / 69 mmHg ( 85 mmHg ) @ 5:23:00 AM Clinical Evaluation EBL: 5mL-10mL Procedural Details Procedure Consent Obtained. Admit Source: Out Patient. Pre-Procedure Time Out. Identified patient by full name and date of as verbalized by the patient/guarantor. Does the consent match the physician's order: Yes. Accurate & Complete Informed Consent: Yes. Inpatient/Outpatient History & Physical on Chart: Yes. If H&P is completed, is and addenduem needed: N/A; If yes, is the addendum complete: N/A. Visualize and Verify Site with Patient/Guarantor: N/A. Relevant Radiology Images available: N/A. Pre-op teaching completed and patient verbalized understanding. The risks, benefits, and alternatives of sedation and/or procedure were discussed by physician. The patient agrees to continue. Procedure started. Correct patient, site and procedure confirmed by cath team. PERRLA. Strong, equal hand senior property manager bilaterally. Lungs clear x 5 lobes. IV Site on Arrival: 20 gauge in the left anticubital. Pre Procedural Pulses: bilateral dorsalis pedis was 3+. Pre Procedural Pulses: bilateral posterior tibial was 3+. Pre Procedural Pulses: bilateral radial was 3+. Oxygen started at 2liters/min via nasal canula. bilateral groins was prepped with chloroprep then draped in the usual sterile fashion. right radial was prepped with chloroprep then draped in the usual sterile fashion. Physician notified. Baseline sample Acquired. HR: 52 BPM. Physician arrived. Physician scrubbed in. Immediate Pre-Procedure Time Out. Correct Patient: Yes; Correct Procedure: Yes; Correct Site: Yes; Correct Patient Position: Yes; Correct Supplies: Yes; Dried Flammable Prep: Yes; Blood Products Available: N/A;. Lidocaine 1% infiltrated to the right radial. Arterial access obtained. A 5 stateless TIG catheter in over wire. Multiple views taken of left coronary artery. Catheter out. 6 stateless XB 3 guide catheter was inserted over the wire. Allen guidewire was advanced through the guide catheter to lesion in the Circ. Allen guidewire was advanced through the guide catheter to lesion in the OM1. Allen wire removed from OM. Runthrough guidewire was advanced through the guide catheter to lesion in the OM. runthrough out. Inflation Number : 1 Denice CISSE 3.0X8 ANN -Lot Number# [id number] exp date: 12-10-2021 was prepped and advanced across the Prox CX. The stent was deployed at 14 KELLEY for 0:21 seconds. checking results. cougar wire out. ACT drawn. Results 214 seconds. Therapeutic limits - pre-heparin administration 90-150 seconds and monitoring heparin during a vascular procedure >250 seconds. 6 stateless AL 0.75 guide catheter was inserted over the wire. cougar wire inserted. Guide catheter out. 6 stateless JR 3.5 guide catheter was inserted over the wire. Inflation Number : 1 A MDT R TANNA 3.5X12 ANN -Lot Number# [id number] exp date: 12-15-2021 was prepped and advanced across the Mid RCA. The stent was deployed at 11 KELLEY for 0:27 seconds. A TR Band was successful obtaining hemostatsis at the Right Radial artery insertion site. TR band placed. Hemostasis obtained. Post Procedure: Pulses reassessed and unchanged. PERRLA. Strong, equal hand senior property manager bilaterally. No VTE prophylaxis required. Medication's Wasted: Lidocaine 1% = 18 mL. Medication's Wasted: Nitro = 49.4 mg. Medication's Wasted: Heparin = 2000 units. Total IV fluids: 100 mL. Contrast type used: Omnipaque 300 mgI/mL, 500 mL bottle. Omnipaque 401mL. Post-op diagnosis: Significant circumflex and RCA lesion. NSTEMI. Complications: none. Estimated blood loss: 5mL-10mL. [facility] Clinical Fraility Score: 3: Managing Well. Shoe Turner Indications: ACS <= 24 hours. Chest Pain Symptom Assessment: Typical Angina Symptoms. Cardiovascular Instability:no. Procedure completed. Patient transferred by wheelchair to 1st floor. Vital chart was stopped. Hemodynamic formulas in Rest were re-calculated based on hemoglobin value from 10/09/2021 12:00:00 AM. Site: Right Radial artery Sheath Size: 6 Fr Hemostasis Method: TR Band Hemostasis Success: Successful Procedure Medications Start: 9:41 AM Stop: 9:41 AM Medication: Fentanyl Amount: 50 mcg Route: I.V. Start: 9:56 AM Stop: 9:56 AM Medication: Nitrogylcerin Amount: 200 mcg Route: I.A. Start: 9:57 AM Stop: 9:57 AM Medication: Heparin Amount: 5000 units Route: I.V. Start: 10:07 AM Stop: 10:07 AM Medication: Heparin Amount: 3000 units Route: I.V. Start: 10:27 AM Stop: 10:27 AM Medication: Versed Amount: 1 mg Route: I.V. Start: 10:35 AM Stop: 10:35 AM Medication: Nitrogylcerin Amount: 200 mcg Route: I.A. Start: 10:48 AM Stop: 10:48 AM Medication: Heparin Amount: 1000 units Route: I.V. Start: 10:49 AM Stop: 10:49 AM Medication: Versed Amount: 1 mg Route: I.V. Start: 10:52 AM Stop: 10:52 AM Medication: Fentanyl Amount: 25 mcg Route: I.V. Start: 10:52 AM Stop: 10:52 AM Medication: Fentanyl Amount: 25 mcg Route: I.V. Start: 10:56 AM Stop: 10:56 AM Medication: Nitrogylcerin Amount: 200 mcg Route: I.A. I, the attending physician, have reviewed and verified all procedure medications. Yes, all medications given per verbal order History/Risk Factors Hypertension: No Dyslipidemia: No Peripheral Arterial Disease (PAD): No Myocardial Infarction (WI): Yes Obesity: No Renal Disease: No Tobacco Use: Current/Recent(w/in 1 year) Prior Interventions PCI: No CABG: No Valve Surgery: No Report Signatures Finalized by:Adrian Martinez MD on 06/30/2020 12:16:45 PM
--- NOTE | 2020-06-18 11:16 | PM.PN ---
Subjective Subjective: Interval history: Status post PCI to proximal significant hazy looking circumflex lesion which is a culprit lesion and distal RCA significant 80% stenotic lesion which was incidental finding. 2 drug-eluting stent 1 in circumflex and 1 in distal RCA was placed. Good angiographic result was obtained. Vitals/I&O/Wt Last Vital Signs Temp 97.8 F 06/18/20 07:23 Pulse 60 06/18/20 07:23 Resp 18 06/18/20 07:23 BP 118/65 06/18/20 07:23 Pulse Ox 94 06/18/20 07:23 06/17/20 06/18/20 06/18/20 22:59 06:59 14:59 Intake Total 120 / 360 Output Total Balance 120 / 360 - Weight last 48 hrs Weight 171 lb 11.2 oz Weight 170 lb 14.4 oz Weight 170 lb Physical Exam Narrative: EXAM NARRATIVE: GENERAL: Patient is alert, awake and oriented x3. NECK: No jugular vein distension. HEENT: No cyanosis. No icterus. No pallor. HEART: Regular S1 and S2. No murmur, rub or gallop. LUNGS: Clear to auscultate bilaterally. ABDOMEN: Soft, nontender and nondistended. Positive bowel sounds. No guarding, rebound or tenderness. CENTRAL NERVOUS SYSTEM: Grossly nonfocal. EXTREMITIES: Lower extremities without edema bilaterally. Data : 06/18/20 04:06 06/18/20 04:06 A&P Assessment and plan (1) NSTEMI (non-ST elevated myocardial infarction): Status post PCI to proximal circumflex which was the culprit lesion and distal RCA which was incidental finding with 2 drug-eluting stents. Excellent angiographic result was achieved. Continue aspirin statin beta-alec and Plavix. Continue Plavix at least 1 year. Follow-up with cardiology. Echocardiogram will be obtained. Status: Acute (2) Tobacco abuse: Advised quitting smoking. Status: Acute Attestations Medical Necessity Statement*: Patient requires continuation hospitalization post PCI Coding Level of Care Code Established Pt Acute Calender Operator Helper for Viviang Fwd Patient Type Established History Expanded Problem Focused Exam Expanded Problem Focused Medical Decision Making Moderate Complexity Diagnoses NSTEMI (non-ST elevated myocardial infarction) I21.4 Tobacco abuse Z72.0
--- NOTE | 2020-06-18 11:28 | PC.CHAP ---
Pastoral Care Encounter/Spiritual Assessment Type of Contact [] Declined housecalls nurse visit [] Patient/Family/Request visit [] Outpatient visit [] Follow-up visit [] Physician referral [] Code/Alert [x] Routine visit [] Staff referral [] Actively dying [] Patient sleeping [] Family support [] [] Out of room [] Palliative care [] [x] Receiving care in room [] Pre-surgical visit [] Trauma [] Long length of stay [] ICU visit [] Other: Relational/Emotional Strength [x] Patient feels connected with others/family/visitors/staff [] Distress [] Loneliness/isolation [] Abandonment Spirituality of Patient [x] Person of Aranza [] Attends Latter-Day of their Aranza [x] Believes in Prayer [] Reads Bible or Baptist materials [] There are Spiritual issues to be addressed Supervisor Abattoir Interventions [x] Prayer [x] Active listening [x] Non-anxious presence [x] Spiritual/emotional support [] Crisis/trauma care [x] Spiritual counseling [] Bereavement support [] Provided bereavement packet [] Provided Bible/devotional materials [] Provided toy/stuffed animal, coloring book to patient or family member [] Provided Communion [] Anointing/[place] [] Salvation [x] Completed spiritual assessment [] Other: Impact on Illness or Injury [] Angry [] Fearful [] Anxious [] Often cries [] Exhaustion [x] Unable to work [] Unable to attend moravian [] Unable to walk/stand [] Unable to read [] Unable to drive [] Unable to eat/drink [] Unable to sleep [] Unable to be with family [] Patient intubated [] Other: Summary He is going to need more tests, has a good attitude, feels good, hopes to go home to family Time spent with patient 10 mins
[2020-06-18] MEDS: pantoprazole DR 40 mg Tablet PO (11:49)
[2020-06-18] MEDS: metoprolol tartrate 25 mg Tablet 12.5 MG PO ×2 (11:49→17:12)
[2020-06-18] MEDS: aspirin 81 mg EC Tablet PO (11:50)
[2020-06-18] MEDS: isosorbide mononitrate ER 30 mg Tablet PO (11:50)
--- NOTE | 2020-06-18 13:22 | PC.RESP ---
Smoking Cessation information and a schedule of classes to patient.
[2020-06-18] MEDS: atorvastatin 40 mg Tablet 80 MG PO (19:32)
[2020-06-18] MEDS: acetaminophen 325 mg Tablet 650 MG PO (19:37)
--- NOTE | 2020-06-18 22:46 | PC.NURSE ---
Patient has no complaints at this time. Will monitor.
[2020-06-19] VITALS: BP 108/61; PULSE 57; RESP 21; TEMP 36.8; O2SAT 96
--- NOTE | 2020-06-19 01:50 | PC.NURSE ---
Patient is currently resting with eyes closed. Will monitor.
[2020-06-19 04:00] VITALS: BP 129/74; PULSE 55; RESP 17; TEMP 36.8; O2SAT 94
[2020-06-19 05:47] LABS: Basophils % 0.4 %; Eosinophils # 0.2 10^3/uL (0.0-0.8); Eosinophils % 2.2 %; Hematocrit 39.5 % (37.0-47.0); Hemoglobin 12.7 g/dL (11.5-15.3); Lymphocytes % 29.4 %; Mean Corpuscular HGB Conc 32.2 g/dL (30.0-36.0); Mean Corpuscular Hemoglobin 30.5 pg (28.0-34.0); Monocytes # 0.6 10^3/uL (0.2-0.9); Monocytes % 9.1 %; Neutrophils # 4.05 10^3/uL (1.8-7.7); Neutrophils % 58.5 %; Nucleated Red Blood Cells % 0 %; Platelet Count 148 10^3/cmm (130-400); Red Blood Count 4.16 10^6/uL (4.1-5.3); Red Cell Distribution Width 13.2 % (12.1-15.1); White Blood Count 6.9 10^3/uL (4.0-10.0)
[2020-06-19 06:09] LABS: Anion Gap 13.8 (5-19); Blood Urea Nitrogen 9 mg/dL (6-20); Calcium 8.6 mg/dL (8.5-10.5); Carbon Dioxide 22 mmol/L (22-29); Chloride 108 mmol/L (98-107); Glomerular Filtration Rate 86.9 mL/min (90-130); Glucose 97 mg/dL (65-115); Osmolality Calculated 286 mOsm/kg (285-295); Potassium 3.8 mmol/L (3.5-5.1); Sodium 140 mmol/L (136-145)
[2020-06-19 08:00] VITALS: BP 106/60; PULSE 58; RESP 14; TEMP 36.8; O2SAT 94
[2020-06-19] MEDS: metoprolol tartrate 25 mg Tablet 12.5 MG PO (08:57)
[2020-06-19] MEDS: aspirin 81 mg EC Tablet PO (08:57)
[2020-06-19] MEDS: pantoprazole DR 40 mg Tablet PO (08:58)
[2020-06-19] MEDS: clopidogrel 75 mg Tablet PO (08:58)
[2020-06-19] MEDS: isosorbide mononitrate ER 30 mg Tablet PO (08:58)
--- NOTE | 2020-06-19 10:14 | P.DS_ITS ---
Discharge Providers Date of Admission: 06/17/20 13:39 Date of Discharge: June 19, 2020 Attending Provider at Admission: Dulce Stanley DO Attending Provider at Discharge: Dulce Stanley DO Primary Care Provider: OTILIO Polanco Diagnoses at Discharge Discharge Diagnosis (1) NSTEMI (non-ST elevated myocardial infarction): Status: Acute (2) Tobacco abuse: Status: Acute Reason for Visit Reason for Visit: cp Hospital Course Hospital Course: Patient was seen and evaluated in the emergency department noted to have concern for chest pain with nonspecific EKG changes. She was admitted to the hospital for further evaluation and treatment due to concern for non-ST elevation [place]. Patient had increasing delta troponin which continued to increase over the 6-hour interval. Cardiology, Dr. Martinez was consulted. Patient was treated with loading dose of Plavix, treatment dose Lovenox and started on low-dose beta-alec and statin along with aspirin. She was kept n.p.o. and taken to the cardiac Sales Service Professional on 06/18/2020. Required stent placement x2 in the RCA and circumflex. Patient did well following the procedure without any postprocedural complications. On date of discharge she was awake and alert, denied any chest pain or shortness of breath noted no concerns. Discussed with her plan for discharge to home including cardiology and establishing care with a primary care provider. Patient verbalized understanding and agreed with plan. Discussed with patient's for over 10 minutes on tobacco cessation, she verbalized understanding, did not wish to have any medications or nicotine patches at this time but reported that she would stop smoking. Physical Exam Const: COMMON NORMALS: patient oriented x3 and alert GENERAL APPEARANCE: cooperative ORIENTATION/CONSCIOUSNESS: Yes awake, Yes oriented to person, Yes oriented to place and Yes oriented to time HENMT: COMMON NORMALS: normocephalic and atraumatic HEAD & SCALP: normocephalic and atraumatic Eye: COMMON NORMALS: Equal, round and reactive pupils present PUPIL: Yes Equal, round and reactive pupils present Neck/C-Spine: COMMON NORMALS: supple GENERAL: Yes normal visual inspection Resp: COMMON NORMALS: normal respiratory effort and clear to auscultation bilaterally EFFORT & INSPECTION: Yes able to speak in complete sentences AUSCULTATION: clear to auscultation bilaterally, no rhonchi and no wheezes Cardio: COMMON NORMALS: regular rate, regular rhythm and No murmurs present (Cardio) RATE: regular rate RHYTHM: regular rhythm Extremity: COMMON NORMALS: no clubbing, cyanosis or edema Neuro: COMMON NORMALS: patient oriented x3, CN's II-XII intact bilaterally, moves all extremities and no focal motor deficits SENSORIUM/ORIENTATION: Yes alert, Yes oriented to person, Yes oriented to place and Yes oriented to time SPEECH: speech normal Psych: COMMON NORMALS: mental status grossly normal and cooperative Skin: COMMON NORMALS: no rashes or lesions noted GENERAL SKIN EXAM: no rashes or lesions noted Discharge Data Data Completed and Pending: Completed Studies During Hospitalization Category Date Time Status XR chest 1V elton ble [id number] Urgent Exams 06/17/20 08:22 Completed CV echo complete* [id number] Routine Ultrasound 06/17/20 13:41 Completed Pending at discharge Category Date Time Status DIAMOND DIE DRILLER request for service Routin e Exams 06/18/20 10:00 Taken Labs from last 24 hours 06/19/20 06/19/20 04:46 04:46 WBC 6.9 RBC 4.16 Hgb 12.7 Hct 39.5 MCV 95.0 MCH 30.5 MCHC 32.2 RDW 13.2 Plt Count 148 MPV 12.0 H Neut % (Auto) 58.5 Lymph % (Auto) 29.4 [place] % (Auto) 9.1 Eos % (Auto) 2.2 Baso % (Auto) 0.4 Neut # (Auto) 4.05 Lymph # (Auto) 2.0 [place] # (Auto) 0.6 Eos # (Auto) 0.2 Baso # (Auto) 0.0 Nucleated RBC % (a uto) 0 Nucleated RBCs # 0.0 Sodium 140 Potassium 3.8 Chloride 108 H Carbon Dioxide 22 Anion Gap 13.8 BUN 9 Creatinine 0.7 GFR Calculation 86.9 L Glucose 97 Calculated Osmolal ity 286 Calcium 8.6 Vitals: Last Vital Signs Temp 98.2 F 06/19/20 08:00 Pulse 58 L 06/19/20 08:00 Resp 14 06/19/20 08:00 BP 106/60 06/19/20 08:00 Pulse Ox 94 06/19/20 08:00 Discharge Plan Discharge Patient Disposition: Home Condition: Stable Prescriptions: New atorvastatin 40 mg Tablet 80 mg PO BEDTIME 30 Days Qty: 30 RF: 0 isosorbide mononitrate 30 mg Tablet Extended Release 24 Hr 30 mg PO DAILY 30 Days Qty: 30 RF: 0 clopidogrel 75 mg Tablet 75 mg PO DAILY 30 Days Qty: 30 RF: 0 nitroglycerin 0.4 mg Tablet, Sublingual 0.4 mg sublingual Q5M PRN (Reason: Chest Pain) 30 Days Qty: 20 RF: 0 metoprolol tartrate 25 mg Tablet 12.5 mg PO BID 30 Days Qty: 30 RF: 0 aspirin 81 mg Tablet,Delayed Release (Dr/Ec) 81 mg PO DAILY 30 Days Qty: 30 RF: 0 Continued omeprazole 20 mg Capsule,Delayed Release(Dr/Ec) 20 - 40 mg PO PRN RF: 0 Tums See Rx Instructions .ROUTE .COMPLEX RF: 0 Discontinued aspirin 325 mg Tablet 325 mg PO DAILY RF: 0 Tylenol Extra Strength 500 mg Tablet 1,000 mg PO PRN RF: 0 ibuprofen 200 mg Tablet 400 mg PO PRN RF: 0 vitamin B complex Tablet 1 tab PO DAILY PRN (Reason: unknown) RF: 0 potassium gluconate 595 mg (99 mg) Tablet 595 mg PO BID PRN (Reason: unknown) RF: 0 Discharge Orders: Discharge Order (Routine); Ordered 06/19/20 Ordered By: Dulce Stanley Referrals: Thierry Boyd MD [Physician] - 4-7 days Adrian Martinez MD [Physician] - 1 month Summer Coronado FNP [Nurse Practitioner] - 1 week Carley Serrano FNP [Primary Care Provider] - Discharge Diet: Cardiac Discharge Activity: Increase activity as tolerated, Limit activity as instructed and Return to work/school after cleared by PCP/Specialist Activity Restrictions/Additional Instructions: You were seen in the hospital for chest pain secondary to heart disease. You were taken for an angiogram by cardiology, Dr. Martinez, which resulted in 2 stents being placed in arteries that supply blood to the heart muscle. Continue with lifting restrictions as directed by cardiology Follow-up with primary care provider to establish care in 4 to 7 days Follow-up with cardiology clinic in 1 week Follow-up with Dr. Martinez in 1 month Strongly encouraged tobacco cessation, counseled on cessation including medication usage, declined medication prescriptions, follow-up with your primary care provider if you feel that you need assistance with tobacco cessation. Very important to continue with medications as prescribed, aspirin 81 mg daily, atorvastatin 80 mg at bedtime, Plavix 75 mg daily, metoprolol 12.5 mg every 12 hours, further medications as noted above. You are given a bottle of nitroglycerin to use as needed for chest pain. For any worsening chest pain or shortness of breath present to the emergency department for any other acute concern call your physician or present to the ED. Discharge Attestations Time Spent in Discharge Care*: greater than 30 min Specific Discharge Activities: Specific discharge activities: educating patient, discussing with embedded case manager/social workers/dc planners and documenting/other paperwork Time Spent in Smoking Cessation: Time spent discussing smoking cessation with patient: more than 10 minutes Details of Smoking Cessation Education: Detailed discussion with patient on tobacco cessation including the risk of continuing to smoke. Discussed with her options to assist in cessation including medications and groups, she declined medications at this time Quality Metrics Clinical Quality Measures During this hospital stay, did patient experience: AMI Clinical Trial Participant: No Contraindication to aspirin (AMI): Aspirin given Contraindication to statin: Statin prescribed Contraindication to PCI: PCI performed Coding Level of Care Code Acute Occupational Safety Specialist for [facility]ey Diagnoses NSTEMI (non-ST elevated myocardial infarction) I21.4 Tobacco abuse Z72.0
[2020-06-19 10:59] VITALS: BP 106/60; PULSE 58; RESP 14; TEMP 36.8; O2SAT 94
--- NOTE | 2020-06-19 11:16 | PC.CHAP ---
Pastoral Care Encounter/Spiritual Assessment Type of Contact [] Declined chief supply chain officer visit [] Patient/Family/Request visit [] Outpatient visit [] Follow-up visit [] Physician referral [] Code/Alert [xx] Routine visit [] Staff referral [] Actively dying [] Patient sleeping [] Family support [] [] Out of room [] Palliative care [] [] Receiving care in room [] Pre-surgical visit [] Trauma [] Long length of stay [] ICU visit [] Other: Relational/Emotional Strength [xx] Patient feels connected with others/family/visitors/staff [] Distress [] Loneliness/isolation [] Abandonment Spirituality of Patient [xx] Person of Aranza [] Attends Gnosticism of their [place] [xx] Believes in Prayer [] Reads Bible or Jain materials [] There are Spiritual issues to be addressed Garbage Man Interventions [xx] Prayer [xx] Active listening [xx] Non-anxious presence [] Spiritual/emotional support [] Crisis/trauma care [] Spiritual counseling [] Bereavement support [] Provided bereavement packet [] Provided Bible/devotional materials [] Provided toy/stuffed animal, coloring book to patient or family member [] Provided Communion [] Anointing/[place] [] Salvation [xx] Completed spiritual assessment [] Other: Impact on Illness or Injury [] Angry [] Fearful [] Anxious [] Often cries [] Exhaustion [] Unable to work [] Unable to attend mandaen [] Unable to walk/stand [] Unable to read [] Unable to drive [] Unable to eat/drink [] Unable to sleep [] Unable to be with family [] Patient intubated [] Other: Summary Pt is doing well and expects to be discharged later today. Time spent with patient 10 minutes Garbage Man Michelle Meyer
[2020-06-19 12:00] VITALS: BP 108/65; PULSE 59; RESP 16; TEMP 36.6; O2SAT 95
--- NOTE | 2020-06-19 17:01 | P.PN_ITS ---
Subjective Subjective: Interval history: Denies any complaint. Feeling much better. Denies chest pain Vitals/I&O/Wt Last Vital Signs Temp 97.9 F 06/19/20 12:00 Pulse 59 L 06/19/20 12:00 Resp 16 06/19/20 12:00 BP 108/65 06/19/20 12:00 Pulse Ox 95 06/19/20 12:00 06/19/20 06/19/20 06/19/20 06:59 14:59 22:59 Intake Total 300 / 540 480 / 480 Balance 300 / 540 480 / 480 Weight last 48 hrs Weight 170 lb Weight 171 lb 11.2 oz Weight 170 lb 14.4 oz Physical Exam Narrative: EXAM NARRATIVE: GENERAL: Patient is alert, awake and oriented x3. NECK: No jugular vein distension. HEENT: No cyanosis. No icterus. No pallor. HEART: Regular S1 and S2. No murmur, rub or gallop. LUNGS: Clear to auscultate bilaterally. ABDOMEN: Soft, nontender and nondistended. Positive bowel sounds. No guarding, rebound or tenderness. CENTRAL NERVOUS SYSTEM: Grossly nonfocal. EXTREMITIES: Lower extremities without edema bilaterally. Const: COMMON NORMALS: alert Resp: COMMON NORMALS: clear to auscultation bilaterally AUSCULTATION: clear to auscultation bilaterally Neuro: SENSORIUM/ORIENTATION: Yes alert Data : 06/19/20 04:46 06/19/20 04:46 A&P Assessment and plan (1) NSTEMI (non-ST elevated myocardial infarction): Stable and resolved. Status post PCI to proximal circumflex and distal RCA. Advise continuing beta-alec statin aspirin clopidogrel. Status: Acute (2) Tobacco abuse: Discussed and advised quitting smoking Status: Acute Attestations Medical Necessity Statement*: Patient can follow-up with cardiology. Patient can discharge today. Coding Level of Care Code Acute School Principal for [facility] Diagnoses NSTEMI (non-ST elevated myocardial infarction) I21.4 Tobacco abuse Z72.0
== END 2020-06-19 12:20 | disposition home or self-care (01) | DRG 247 ==
LOC: ER 11:11 → CSU 11:20
PROVIDERS: Emergency Medicine; Internal Medicine Cardiovascular Disease; Physician Assistant; Admitting Provider Family Medicine; PCP Nurse Practitioner Family; Visit Provider Family Medicine
PROC: 027135Z Dilation of Coronary Artery, Two Arteries with Two Drug-eluting Intraluminal Devices, Percutaneous Approach (ICD-10-PCS; principal; 2020-06-18 10:00)
PROC: 027135Z Dilation of Coronary Artery, Two Arteries with Two Drug-eluting Intraluminal Devices, Percutaneous Approach (ICD-10-PCS; 2020-06-18 10:00)
DX: I21.4 Non-ST elevation (NSTEMI) myocardial infarction (principal); F17.210 Nicotine dependence, cigarettes, uncomplicated; Z95.5 Presence of coronary angioplasty implant and graft; R73.9 Hyperglycemia, unspecified; Z66 Do not resuscitate; I25.110 Atherosclerotic heart disease of native coronary artery with unstable angina pectoris
CPT/HCPCS: 12345; 36415; 71045; 80048; 80053; 80061; 83036; 84443; 84484; 85025; 85347; 85610; 93005; 93306; 93454; 96372; 99284; C1769; C1874; C1887; C1894; C9600; C9601; G0378; J1644; J1650; J2250; J3010; J3490; J7030; Q9967

== ENCOUNTER → 2020-06-25 10:14 | Outpatient (BNVA) | payer BC, SELFPAY | PROVIDERS: PCP Family Medicine Adult Medicine; Visit Provider Nurse Practitioner Family | DX: I25.10 Atherosclerotic heart disease of native coronary artery without angina pectoris (principal) | CPT/HCPCS: 80048 ==

== ENCOUNTER → 2021-02-03 09:59 | Outpatient (BNVA) | payer BC, SELFPAY | PROVIDERS: PCP Family Medicine Adult Medicine; Visit Provider Family Medicine Adult Medicine | DX: R73.03 Prediabetes (principal); I25.119 Atherosclerotic heart disease of native coronary artery with unspecified angina pectoris; E78.5 Hyperlipidemia, unspecified; Z72.0 Tobacco use | CPT/HCPCS: 80053; 80061; 83036 ==

== ENCOUNTER → 2021-05-07 09:57 | Outpatient (BNVA) | payer OTHER, SELFPAY | PROVIDERS: PCP Family Medicine Adult Medicine; Visit Provider Family Medicine Adult Medicine | DX: I25.119 Atherosclerotic heart disease of native coronary artery with unspecified angina pectoris (principal); E66.9 Obesity, unspecified; E78.5 Hyperlipidemia, unspecified | CPT/HCPCS: 80061 ==

== ENCOUNTER → 2021-06-02 11:01 | Outpatient (BNVA) | payer OTHER, SELFPAY | PROVIDERS: PCP Family Medicine Adult Medicine; Visit Provider Nurse Practitioner Family | DX: Z20.822 Contact with and (suspected) exposure to COVID-19 (principal); J06.9 Acute upper respiratory infection, unspecified | CPT/HCPCS: 87635 ==

== ENCOUNTER → 2021-09-24 08:48 | Outpatient (BNVA) | payer OTHER, SELFPAY | PROVIDERS: PCP Family Medicine Adult Medicine; Visit Provider Family Medicine Adult Medicine | DX: F41.8 Other specified anxiety disorders (principal); E66.9 Obesity, unspecified; E78.5 Hyperlipidemia, unspecified; I10 Essential (primary) hypertension; I25.119 Atherosclerotic heart disease of native coronary artery with unspecified angina pectoris; Z87.898 Personal history of other specified conditions | CPT/HCPCS: 80053; 80061; 85025 ==

== ENCOUNTER → 2022-03-25 09:22 | Outpatient (BNVA) | payer OTHER, SELFPAY | PROVIDERS: PCP Family Medicine Adult Medicine; Visit Provider Family Medicine Adult Medicine | DX: I10 Essential (primary) hypertension (principal); E78.5 Hyperlipidemia, unspecified; Z87.898 Personal history of other specified conditions; I25.119 Atherosclerotic heart disease of native coronary artery with unspecified angina pectoris; I21.4 Non-ST elevation (NSTEMI) myocardial infarction; R10.11 Right upper quadrant pain; E66.9 Obesity, unspecified | CPT/HCPCS: 80053; 80061; 83036 ==

== ENCOUNTER → 2022-09-23 08:22 | Outpatient (BNVA) | payer OTHER, SELFPAY | PROVIDERS: PCP Family Medicine Adult Medicine; Visit Provider Family Medicine Adult Medicine | DX: E78.5 Hyperlipidemia, unspecified (principal); E66.9 Obesity, unspecified; I25.119 Atherosclerotic heart disease of native coronary artery with unspecified angina pectoris; E11.69 Type 2 diabetes mellitus with other specified complication; I10 Essential (primary) hypertension | CPT/HCPCS: 80053; 80061; 83036 ==

== ENCOUNTER → 2023-03-24 08:21 | Outpatient (BNVA) | payer OTHER, SELFPAY | PROVIDERS: PCP Family Medicine Adult Medicine; Visit Provider Family Medicine Adult Medicine | DX: I10 Essential (primary) hypertension (principal); I21.4 Non-ST elevation (NSTEMI) myocardial infarction; E11.69 Type 2 diabetes mellitus with other specified complication; E78.5 Hyperlipidemia, unspecified; E66.9 Obesity, unspecified; G47.62 Sleep related leg cramps | CPT/HCPCS: 80053; 80061; 83036; 84443; 85025 ==

== ENCOUNTER → 2023-12-15 08:07 | Outpatient (BNVA) | payer BC, SELFPAY | PROVIDERS: PCP Family Medicine Adult Medicine; Visit Provider Family Medicine Adult Medicine | DX: I10 Essential (primary) hypertension (principal); E11.69 Type 2 diabetes mellitus with other specified complication; E66.9 Obesity, unspecified; E78.5 Hyperlipidemia, unspecified | CPT/HCPCS: 80053; 80061; 83036; 84443; 85025 ==

== ENCOUNTER → 2025-01-03 11:22 | Outpatient (BNVA) | payer BC, SELFPAY | PROVIDERS: PCP Family Medicine; Visit Provider Family Medicine | DX: I10 Essential (primary) hypertension (principal); E11.69 Type 2 diabetes mellitus with other specified complication; E66.9 Obesity, unspecified | CPT/HCPCS: 80053; 80061; 82043; 83036; 84443; 85025 ==

== ENCOUNTER → 2025-06-12 15:31 | Outpatient (BNVA) | payer BC, SELFPAY | PROVIDERS: PCP Family Medicine; Visit Provider Internal Medicine Cardiovascular Disease | DX: R07.9 Chest pain, unspecified (principal) | CPT/HCPCS: 93005 ==

== ENCOUNTER 2025-07-04 08:22 | Outpatient (CLI) | payer BC, SELFPAY ==
--- NOTE | 2025-07-04 08:37 | XR_ITS ---
WS: [email or web address] Exam: XR lumbar spine 2-3V* [id number] Date/Time of Exam: 07/04/2025 8:38 AM Reason For Exam: right hip / low back pain DLP: 1.3 cm anterolisthesis of L5 on S1. Complete degeneration of the L5-S1 disc. No other malalignment noted. Exaggerated lumbosacral angle. Facet DJD at L4-5 and L5-S1. Mild levoscoliosis. No acute fracture. XR/XR lumbar spine 2-3V* [id number] IMPRESSION: 1. 1.3 cm anterolisthesis of L5 on S1. This may be due to facet degeneration or underlying pars interarticularis defect. Complete degeneration of the L5-S1 di sc. Exaggerated lumbar lordosis and increased lumbosacral angle. 2. The remainder of the lumbar spine is intact with only minimal degenerative c hanges. Slight levoscoliosis.
--- NOTE | 2025-07-04 08:37 | XR_ITS ---
WS: [email or web address] Exam: XR hip RT 2-3V wo/w pel* [id number] Date/Time of Exam: 07/04/2025 8:38 AM Reason For Exam: right hip pain No fracture. Mild degenerative change of the joint compartment. Soft tissue calcification along the greater trochanter that might reflect calcific tendinitis or bursitis. XR/XR hip RT 2-3V wo/w pel* [id number] IMPRESSION: 1. Minimal DJD. 2. Soft tissue calcification along the greater trochanter that may represent ca lcific tendinitis or bursitis.
== END 2025-07-04 08:23 | disposition home or self-care (01) ==
PROVIDERS: PCP Family Medicine; Visit Provider Family Medicine
DX: M25.551 Pain in right hip (principal)
CPT/HCPCS: 72100; 73502; 80053; 80061; 83036

== ENCOUNTER → 2025-07-15 15:18 | Outpatient (BNVA) | payer BC, SELFPAY | PROVIDERS: PCP Family Medicine; Visit Provider Orthopaedic Surgery | DX: M48.062 Spinal stenosis, lumbar region with neurogenic claudication (principal) | CPT/HCPCS: 72100 ==